=== PATIENT | female | born 1970 | race Caucasian/White ===

== ENCOUNTER 2017-04-12 17:00 | Emergency (ER) | payer BC ==
[~2017-04-12] VITALS: Ht 162.6 cm; Wt 89.8 kg
[2017-04-12 17:25] LABS: BASO % 1 % (0-3); EOS % 3 % (0-3); HEMATOCRIT 38.6 % (36.0-47.0); HEMOGLOBIN 12.8 g/dL (12.0-15.5); LYMPH # 1.4 x10^3/uL (1.0-4.8); LYMPH % 34 % (24-48); MEAN CORPUSCULAR HEMOGLOBIN 29 pg (25-35); MEAN CORPUSCULAR HGB CONC 33 g/dL (31-37); MEAN CORPUSCULAR VOLUME 87 fL (79-100); MONO % 10 % (0-9); NEUT % 52 % (31-73); PLATELET COUNT 244 x10^3/uL (140-400); RED BLOOD COUNT 4.42 x10^6/uL (3.50-5.40); RED CELL DISTRIBUTION WIDTH 13.5 % (11.5-14.5); WHITE BLOOD COUNT 4.2 x10^3/uL (4.0-11.0)
[2017-04-12] MEDS ORDERED: ASPIRIN 325 MG TABLET PO ONE (17:30)
[2017-04-12 17:38] LABS: CALCIUM 9.4 mg/dL (8.5-10.1); CREATININE 0.8 mg/dL (0.6-1.0); GFR 77.2; POTASSIUM 3.9 mmol/L (3.5-5.1)
--- NOTE | 2017-04-12 17:38 | EKG ---
[facility] [address] [place] [address] Test Date: 2017-04-12 Test Time: 17:09:45 Pat Name: ALCON SORIA Department: Room: Gender: F [employer] Supervisor: : 1970 Requested By: JULISSA GUDINO Order Number: [id number] Reading MD: Gwendolyn Grayson Measurements Intervals [place] Rate: 72 P: 41 NC: 140 QRS: 49 QRSD: 84 T: 27 QT: 390 QTc: 429 Interpretive Statements SINUS RHYTHM NORMAL EKG Electronically Signed On 04-14-2017 14:11:11 CDT by Gwendolyn Grayson
[2017-04-12 17:42] LABS: ALBUMIN 4.3 g/dL (3.4-5.0); ALBUMIN/GLOBULIN RATIO 1.4 (1.0-1.7); TOTAL BILIRUBIN 0.4 mg/dL (0.2-1.0); TOTAL PROTEIN 7.4 g/dL (6.4-8.2)
[2017-04-12 18:10] VITALS: BP 106/56
--- NOTE | 2017-04-12 18:10 | PHYS DOC ---
Past Medical History Past Medical History: Hypothyroid Past Surgical History: Alcohol Use: Occasionally Drug Use: None Adult General Chief Complaint Chief Complaint: CHEST PAIN HPI HPI Patient is a 47 year old female who presents with chest pain. The patient reports about 2 hours prior to arrival she had onset of generalized chest pressure which was nonradiating. Reports associated shortness of breath, denies nausea/diaphoresis. She denies fevers/chills, cough, lower extremity pain/swelling. Denies previous history of similar symptoms. Pain essentially resolved at time of my evaluation. She reports history of hypothyroidism, otherwise denies past medical history. Nonsmoker. Denies use of street drugs. Denies use of exogenous estrogen, recent surgery or travel. Denies family history of CAD. Review of Systems Review of Systems Constitutional: Denies fever or chills Eyes: Denies change in visual acuity HENT: Denies nasal congestion or sore throat Respiratory: Denies cough, reports shortness of breath Cardiovascular: Reports chest pain, denies edema GI: Denies abdominal pain, nausea, vomiting, bloody stools or diarrhea Musculoskeletal: Denies back pain or joint pain Integument: Denies rash or skin lesions Neurologic: Denies headache, focal weakness or sensory changes Current Medications Current Medications Current Medications Medications (Trade) Dose Ordered Sig/Tomasa Start Time Stop Time Status Last Admin Dose Admin Aspirin (Chris Aspirin) 325 mg 1X ONCE 04/12/17 17:30 04/12/17 17:31 DC 04/12/17 17:35 325 MG Allergies Allergies Allergies Coded Allergies Type Severity Reaction Last Updated Verified Penicillins Allergy Intermediate 04/12/17 Yes Physical Exam Physical Exam Constitutional: Obese, no acute distress, non-toxic appearance. HENT: Normocephalic, atraumatic, bilateral external ears normal, oropharynx moist, nose normal. Eyes: conjunctiva normal, no discharge. Neck: supple, no stridor. Cardiovascular: RRR, no murmurs, no edema. Lungs & Thorax: LCTAB, no wheezing, no respiratory distress. reproducible tenderness with palpation over the sternum. Abdomen: soft, nontender, nondistended. Skin: Warm, dry, no erythema, no rash. Back: No tenderness. Extremities: No tenderness, no edema. no calf tenderness or swelling. Neurologic: Alert and oriented X 3, no focal deficits noted. Psychologic: Affect normal, judgement normal, mood normal. Current Patient Data Vital Signs Vital Signs Date Time Temp Pulse Resp B/P (MAP) Pulse Ox O2 Delivery O2 Flow Rate FiO2 04/12/17 17:40 65 143/75 (97) Room Air 04/12/17 17:08 97.9 20 98 97.9 Lab Values Laboratory Tests Test 04/12/17 16:50 04/12/17 17:10 POC Urine HCG, Qualitative Hcg negative (Negative) White Blood Count 4.2 x10^3/uL (4.0-11.0) Red Blood Count 4.42 x10^6/uL (3.50-5.40) Hemoglobin 12.8 g/dL (12.0-15.5) Hematocrit 38.6 % (36.0-47.0) Mean Corpuscular Volume 87 fL (79-100) Mean Corpuscular Hemoglobin 29 pg (25-35) Mean Corpuscular Hemoglobin Concent 33 g/dL (31-37) Red Cell Distribution Width 13.5 % (11.5-14.5) Platelet Count 244 x10^3/uL (140-400) Neutrophils (%) (Auto) 52 % (31-73) Lymphocytes (%) (Auto) 34 % (24-48) Monocytes (%) (Auto) 10 % (0-9) H Eosinophils (%) (Auto) 3 % (0-3) Basophils (%) (Auto) 1 % (0-3) Neutrophils # (Auto) 2.1 x10^3uL (1.8-7.7) Lymphocytes # (Auto) 1.4 x10^3/uL (1.0-4.8) Monocytes # (Auto) 0.4 x10^3/uL (0.0-1.1) Eosinophils # (Auto) 0.1 x10^3/uL (0.0-0.7) Basophils # (Auto) 0.0 x10^3/uL (0.0-0.2) Sodium Level 141 mmol/L (136-145) Potassium Level 3.9 mmol/L (3.5-5.1) Chloride Level 104 mmol/L (98-107) Carbon Dioxide Level 29 mmol/L (21-32) Anion Gap 8 (6-14) Blood Urea Nitrogen 13 mg/dL (7-20) Creatinine 0.8 mg/dL (0.6-1.0) Estimated GFR (Cockcroft-Gault) 77.2 BUN/Creatinine Ratio 16 (6-20) Glucose Level 107 mg/dL (70-99) H Calcium Level 9.4 mg/dL (8.5-10.1) Total Bilirubin 0.4 mg/dL (0.2-1.0) Aspartate Amino Transferase (AST) 29 U/L (15-37) Alanine Aminotransferase (ALT) 41 U/L (14-59) Alkaline Phosphatase 71 U/L (46-116) Troponin I Quantitative < 0.017 ng/mL (0.000-0.055) KW-Nra-O-Type Natriuretic Peptide 56 pg/mL (0-124) Total Protein 7.4 g/dL (6.4-8.2) Albumin 4.3 g/dL (3.4-5.0) Albumin/Globulin Ratio 1.4 (1.0-1.7) Lipase 129 U/L (73-393) Laboratory Tests 04/12/17 17:10 Laboratory Tests 04/12/17 17:10 EKG EKG Interpreted by me: Normal sinus rhythm rate 72, no acute ST or T wave changes, normal intervals, no ectopy. [] Radiology/Procedures Radiology/Procedures CXR: interpreted by me: no cardiomegaly, no infiltrate, no pneumothorax.[] Course & Med Decision Making Course & Med Decision Making Pertinent Labs and Imaging studies reviewed. (See chart for details) The patient presents with atypical chest pain. Gave aspirin upon arrival. Obtained labs, EKG, CXR. No acute abnormality on workup here. HEART score is 0 , PERC is negative. Symptoms absent at time of arrival & throughout her stay here. Discussed results, recommend rest, tylenol/ibuprofen, suggest taking aspirin 81 mg daily until seen by physician. Follow up with PCP or with Dr. Morris in the cardiology clinic in 2-3 days. Come back for severe chest pain or shortness of breath, or any otherwise worsening condition. Discharged home in stable condition. [] Dragon Disclaimer Dragon Disclaimer This electronic medical record was generated, in whole or in part, using a voice recognition dictation system. Departure Departure Impression: Primary Impression: Chest pain Disposition: HOME, SELF-CARE Condition: STABLE Referrals: ALEN BERNAL (PCP) ABEBE MORRIS MD Patient Instructions: Chest Pain (Nonspecific), [id number] Additional Instructions: You were seen in the emergency department today for chest pain. Tests did not show a serious cause of symptoms. Please rest, take Tylenol or ibuprofen for pain. Follow-up with primary care physician or Dr. Morris in the cardiology clinic in 2-3 days. Return to the emergency department for severe chest pain or shortness of breath, any otherwise worsening condition. JULISSA GUDINO MD Apr 12, 2017 18:10
--- NOTE | 2017-04-13 08:05 | RAD ---
2 view CXR: Clinical indications: Chest pain and shortness of breath for 3 hours. Comparison: None available. Findings: No acute lung infiltrate or pleural effusion or pulmonary edema or lung mass or pneumothorax is seen. The heart size, pulmonary vasculature, mediastinum and both kellie are unremarkable. The osseous structures appear intact. Impression: No acute radiographic abnormality is seen.
== END 2017-04-12 18:37 | disposition home or self-care (01) ==
LOC: ER 17:00
DX: R07.89 Other chest pain (principal); R06.02 Shortness of breath; E03.9 Hypothyroidism, unspecified; Z88.0 Allergy status to penicillin
CPT/HCPCS: 36415; 71020; 80053; 81025; 83690; 83880; 84484; 85027; 93005; 99285-25

== ENCOUNTER → 2018-07-08 | Outpatient (CLI) | payer BC ==
--- NOTE | 2018-07-08 17:58 | KCIC ---
Pelvic ultrasound to include transabdominal and transvaginal imaging 07/08/2018 CLINICAL HISTORY: Pelvic pain with spotting for 3 weeks. TECHNIQUE: Using the distended urinary bladder as a sonographic window, a real-time ultrasound examination of pelvis was performed. Additionally in an attempt to better evaluate the uterus and adnexa, a transvaginal ultrasound study was performed. Multiple images were obtained. FINDINGS: The uterus is within normal limits in size. It measures 5.6 x 4.4 x 3.4 cm in longitudinal, transverse, and AP dimensions. A 1.6 cm hypoechoic mass is seen involving the fundus of the uterus. This is consistent with a fibroid. No additional abnormality of the uterus is seen. The endometrial echo complex measures 4 mm in thickness which is within normal limits. Both ovaries are within normal limits in size and echogenicity. The right ovary measures 1.4 x 1.7 x 1.1 cm in size. Left ovary measures 1.7 x 1.3 x 2.0 cm in size. No adnexal mass is seen. No free fluid is noted. IMPRESSION: 1. 1.6 cm uterine fibroid. 2. Otherwise negative study. Electronically signed by: Tacos Lindsay MD (07/08/2018 5:54 PM) [facility]
== END | disposition home or self-care (01) ==
LOC: KCIC US 15:17
PROVIDERS: ATTEND Family Medicine
DX: D25.9 Leiomyoma of uterus, unspecified (principal); E03.9 Hypothyroidism, unspecified; Z88.0 Allergy status to penicillin
CPT/HCPCS: 76830; 76856

== ENCOUNTER 2018-10-17 06:08 | Observation (INO) | payer BC ==
[~2018-10-17] VITALS: Ht 162.6 cm; Wt 79.4 kg
[2018-10-17] VITALS (8 sets, daily range): BP systolic 102–139; BP diastolic 62–79
[~2018-10-17 06:08] MED LIST: CLINDAMYCIN 900MG PREMIX 50 ML IV ONE; IBUP200T44 PO; LEVO100T5 PO; NAPR220C4 PO
[2018-10-17 06:56] LABS: U PREG PATIENT NEGATIVE (NEG)
[2018-10-17] MEDS: IV RINGERS,LACTATED 1000ML 1,000 ML IV SCH ×2 (06:56→10:19)
[2018-10-17 06:57] LABS: BASO % 1 % (0-3); EOS # 0.1 x10^3/uL (0.0-0.7); EOS % 3 % (0-3); HEMATOCRIT 38.6 % (36.0-47.0); HEMOGLOBIN 12.8 g/dL (12.0-15.5); LYMPH % 29 % (24-48); MEAN CORPUSCULAR HEMOGLOBIN 29 pg (25-35); MEAN CORPUSCULAR HGB CONC 33 g/dL (31-37); MEAN CORPUSCULAR VOLUME 87 fL (79-100); MONO # 0.4 x10^3/uL (0.0-1.1); MONO % 10 % (0-9); NEUT % 57 % (31-73); PLATELET COUNT 250 x10^3/uL (140-400); RED BLOOD COUNT 4.44 x10^6/uL (3.50-5.40); RED CELL DISTRIBUTION WIDTH 13.7 % (11.5-14.5); WHITE BLOOD COUNT 3.6 x10^3/uL (4.0-11.0)
[2018-10-17] MEDS ORDERED: LIDOCAINE 1% PF 2 ML VIAL. ID PRN (07:00)
[2018-10-17] MEDS ORDERED: ONDANSETRON PF 4 MG/2 ML VIAL. IV PRN ×2 (07:00→10:00)
[2018-10-17] MEDS ORDERED: MORPHINE SULFATE 2 MG/ML VIAL. IV PRN (07:00)
[2018-10-17] MEDS ORDERED: fentaNYL PF VIAL 100 MCG/2 ML VIAL IV PRN ×2 (07:00)
[2018-10-17] MEDS ORDERED: SCOPOLAMINE 1.5MG PATCH. TD ONE ×2 (07:00→09:00)
[2018-10-17] MEDS ORDERED: PROCHLORPERAZINE 10 MG/2 ML VIAL. IV PRN ×2 (07:00→10:00)
[2018-10-17] MEDS ORDERED: HYDROmorphone 2 MG/ML VIAL IV PRN (07:00)
[2018-10-17] MEDS ORDERED: BUPIVAC MPF-EPI 0.5%-1:200000 30 ML VIAL. ONE (07:08)
[2018-10-17] MEDS ORDERED: LIDOCAINE 1%/EPI 1:100,000 20 ML VIAL. ONE (07:08)
[2018-10-17] MEDS ORDERED: METHYLENE BLUE 1% 10 ML VIAL. ONE (07:08)
[2018-10-17] MEDS ORDERED: DEXAMETHASONE SOD PHOS 20 MG/5 ML VIAL. ONE (07:22)
[2018-10-17] MEDS ORDERED: MIDAZOLAM HCL/PF 2 MG/2 ML VIAL. ONE (07:22)
[2018-10-17] MEDS ORDERED: ONDANSETRON PF 4 MG/2 ML VIAL. ONE (07:22)
[2018-10-17] MEDS ORDERED: LIDOCAINE 2% PF Vial for OR 5 ML VIAL. ONE (07:22)
[2018-10-17] MEDS ORDERED: PROPOFOL 20 ML IV ONE (07:22)
[2018-10-17] MEDS ORDERED: ROCURONIUM 50 MG/5 ML VIAL. ONE (07:23)
[2018-10-17] MEDS ORDERED: fentaNYL PF VIAL 100 MCG/2 ML VIAL ONE ×2 (07:23→09:13)
[2018-10-17] MEDS ORDERED: ESTROGENS, CONJ VAGINAL CREAM 30GM TUBE. ONE (07:34)
[2018-10-17] MEDS ORDERED: SURGICEL HEMOSTAT 4X8 EACH. TP ONE (07:45)
[2018-10-17] MEDS ORDERED: KETOROLAC 30 MG/ML INJ FOR OR. INJ ONE (08:25)
[2018-10-17] MEDS ORDERED: FAMOTIDINE 20 MG/2 ML VIAL ONE (08:39)
[2018-10-17] MEDS ORDERED: GLYCOPYRROLATE 1 MG/5 ML VIAL. ONE (09:27)
[2018-10-17] MEDS ORDERED: NEOSTIGMINE METHYLSULFATE 5 MG/5 ML SYRINGE. ONE (09:28)
[2018-10-17] MEDS ORDERED: SEVOFLURANE 61 TO 120 MINUTES. IH ONE (09:30)
[2018-10-17] MEDS ORDERED: CALCIUM CARBONATE 500 MG TAB.CHEW PO PRN (10:00)
[2018-10-17] MEDS ORDERED: 0.9 % SODIUM CHLORIDE 10 ML DISP.SYRIN. IV PRN (10:00)
[2018-10-17] MEDS ORDERED: DEXTROSE 50% 25 GM / 50ML DISP.SYRIN. IV PRN (10:00)
[2018-10-17] MEDS ORDERED: ZOLPIDEM 5 MG TABLET. PO PRN (10:00)
[2018-10-17] MEDS ORDERED: oxyCODONE/APAP 5/325 1 TAB TABLET PO PRN (10:00)
[2018-10-17] MEDS ORDERED: SIMETHICONE 80 MG TAB.CHEW PO PRN (10:00)
[2018-10-17] MEDS ORDERED: diphenhydrAMINE HCL 25 MG CAPSULE PO PRN (10:00)
--- NOTE | 2018-10-17 10:00 | PDOC ---
BRIEF OPERATIVE NOTE Date: Oct 17, 2018 Pre-Op Diagnosis 1. Fibroids 2. PMB 3. Cystocele Post-Op Diagnosis Same Procedure Performed TVH & RSO Anterior Colporrhaphy Surgeon Dr. Garza Anesthesia Type: General Blood Loss 200 ml Specimens Obtained uterus, cervix, Right fallopian tube and ovary Findings Fibroid uterus, cystocele Complications none Operative Note see operative note ABEBE GARZA Jr, MD Oct 17, 2018 10:00
--- NOTE | 2018-10-17 10:44 | OP ---
DATE OF SURGERY: PREOPERATIVE DIAGNOSES: 1. Fibroids. 2. Postmenopausal bleeding. 3. Cystocele. POSTOPERATIVE DIAGNOSES: 1. Fibroids. 2. Postmenopausal bleeding. 3. Cystocele. PROCEDURES: 1. TVH and RSO. 2. Anterior colporrhaphy. SURGEON: Abebe Garza MD ANESTHESIA: GETA. ESTIMATED BLOOD LOSS: 200 mL. COMPLICATIONS: None. FINDINGS: Fibroid uterus, cystocele. SUMMARY: A 48-year-old female who continued to have postmenopausal bleeding. Endometrial biopsy was negative. The patient was counseled on risks, benefits and expectations of TVH-BSO, anterior repair and sacrospinous ligament fixation risks, benefits and expectations and voiced clear understanding to proceed. DESCRIPTION OF PROCEDURE: The patient was taken to the Surgery Suite and placed in dorsal lithotomy position. She was prepped with Betadine solution for vaginal prep and draped in sterile fashion. After adequate anesthesia, a weighted speculum and curved Sophia was placed vaginally. Rock clamp was placed on the cervix. With evaluation under anesthesia, the patient did not have much uterine dehiscence, therefore would not do the sacrospinous ligament fixation. 1% lidocaine with epinephrine was injected in a circumferential manner. Bovie cautery was utilized to circumscribe the cervix. The vaginal mucosa was dissected away from the lower uterine segment using a moist Ray-Ranjit. Parametrial tissue was clamped bilaterally with curved Enmanuel clamps, cut and suture ligated with 2-0 Vicryl suture. The posterior cul-de-sac was entered sharply with curved Espitia scissors. The uterosacral ligaments and cardinal ligaments were clamped bilaterally, cut and suture ligated. The utero-ovarian pedicle was clamped bilaterally, cut, and suture ligated. Uterus was then retroverted. The round ligament was then clamped, cut and suture ligated. The uterus, cervix and fibroids were removed. The right fallopian tube and ovary was then identified, grasped with Babcocks. Curved Enmanuel clamp was placed over the right infundibulopelvic ligament, the right fallopian tube and ovary were then excised. The pedicle was suture tied with 2-0 Vicryl suture. The left fallopian tube and ovary we were unable to identify after searching, the patient is postmenopausal and may have atrophied. At this point, a modified Walsh's culdoplasty was performed incorporating the uterosacral ligaments bilaterally. The remainder of the vaginal cuff was reapproximated using 2-0 Vicryl suture in a [id number] manner. An Allis clamp was placed 2 cm below the urethral orifice on the anterior vaginal mucosa. A second Allis clamp was placed 2 cm below the first Allis clamp. 1% lidocaine with epinephrine was injected between 2 Allis clamps. Scalpel was utilized to make a vertical incision between the 2 Allis clamps. The vaginal mucosa was then dissected away from the pubovesical fascia using sharp dissection with Metzenbaum scissors along with a moist Ray-Ranjit. The pubovesical fascia was then reapproximated using 2-0 Vicryl suture in an interrupted manner. The excess anterior vaginal mucosa was excised using the Metzenbaum scissors. The remaining anterior vaginal wall mucosa was reapproximated using 2-0 Vicryl suture in a [id number] manner. Premarin soaked vaginal packing was then placed. The patient tolerated the procedure well and was taken to Recovery Room in stable condition. Sponge and needle count correct x 3. ABEBE GARZA MD DR: EVER/raj JOB#: [id number] / [id number]
--- NOTE | 2018-10-17 11:10 | NUR ---
Received in room 339 from PACU. A+O x3. Pale pink with brisk capillary refill. States she is comfortable at present but is experiencing mild nausea. Scopalomine patch in place behind left ear. Vaginal packing in place, V-pad dry. SCDs on and active. IV infusing via left hand D5LR at 125/hr. Escobar in place draining cloudy yellow urine. Daughter at bedside.
--- NOTE | 2018-10-17 13:10 | NUR ---
Taking ice chips sparingly. CO nausea. Rates abd pain at 8. Dr. Garza called for orders for pain control.
[2018-10-17] MEDS ORDERED: OPIUM/BELLADONNA 30/16.2MG SUPP.RECT. PR ONE (13:15)
[2018-10-17] MEDS ORDERED: fentaNYL PF VIAL 100 MCG/2 ML VIAL IV ONE (13:15)
--- NOTE | 2018-10-17 13:55 | NUR ---
Sleeping past Fentanyl dose.
[2018-10-17] MEDS ORDERED: GABAPENTIN 300 MG CAPSULE. PO SCH (14:00)
[2018-10-17] MEDS: KETOROLAC 30 MG/ML VIAL. IV PRN ×2 (14:44→21:27)
--- NOTE | 2018-10-17 14:50 | NUR ---
States pain has returned, rates at 8. States it feels as if she has to urinate, sanchez draining well. B+O Supp given.Nausea continues. Toradol and Zofran given.
--- NOTE | 2018-10-17 16:20 | NUR ---
Feeling better except for 1 spot in RLQ. Dangled at side of bed with some relief. Warm pack applied to abdomen. Nausea a little better, taking sips of pop, cracker and jello.
--- NOTE | 2018-10-17 17:40 | NUR ---
States nausea is a little better. C/O pain and full feeling in vaginal area. Request nurse to call Dr. Garza to see if packing can be removed. Feels this will relieve her discomfort.
--- NOTE | 2018-10-17 18:00 | NUR ---
Vaginal packing removed per Dr. bhakta. Pt feels some relief, would like to rest a while. Room lights dimmed. Call light at hand. Addendum: 10/17/18 at 1824 by YANDEL WARD RN Minimal drainage on vag packing, pericare given. Abdomen soft, bowel sounds X 4 quadrants.+
[2018-10-18 03:40] VITALS: BP 113/68
[2018-10-18 03:49] LABS: BASO % 0 % (0-3); EOS % 0 % (0-3); HEMATOCRIT 34.3 % (36.0-47.0); HEMOGLOBIN 11.8 g/dL (12.0-15.5); LYMPH # 0.9 x10^3/uL (1.0-4.8); LYMPH % 10 % (24-48); MEAN CORPUSCULAR HEMOGLOBIN 30 pg (25-35); MEAN CORPUSCULAR HGB CONC 34 g/dL (31-37); MEAN CORPUSCULAR VOLUME 86 fL (79-100); MONO # 0.7 x10^3/uL (0.0-1.1); MONO % 8 % (0-9); NEUT % 82 % (31-73); PLATELET COUNT 234 x10^3/uL (140-400); RED BLOOD COUNT 3.97 x10^6/uL (3.50-5.40); RED CELL DISTRIBUTION WIDTH 13.3 % (11.5-14.5); WHITE BLOOD COUNT 8.5 x10^3/uL (4.0-11.0)
[2018-10-18 09:00] VITALS: BP 113/67
--- NOTE | 2018-10-18 12:20 | PDOC ---
SURGICAL PROGRESS NOTE Subjective Pt. feeling well. No complaints. Vital Signs Vital Signs Date Time Temp Pulse Resp B/P (MAP) Pulse Ox O2 Delivery O2 Flow Rate FiO2 10/18/18 11:40 16 Room Air 10/18/18 03:40 98.0 71 113/68 (83) 95 98.0 10/17/18 10:21 10 I&O Intake and Output 10/18/18 07:01 Intake Total 2645 ml Output Total 2325 ml Balance 320 ml Intake Oral 670 ml IV Total 1975 ml Output Urine Total 2125 ml Estimated Blood Loss 200 ml PATIENT HAS A TRINIDAD: No General: Alert, Oriented X3, Cooperative HEENT: Atraumatic Lungs: Clear to auscultation Heart: Regular rate Abdomen: Normal bowel sounds, Soft Psych/Mental Status: Mental status NL Labs Laboratory Tests Test 10/17/18 06:25 10/17/18 06:30 10/18/18 03:15 Urine Test Negative (NEG) White Blood Count 3.6 x10^3/uL (4.0-11.0) 8.5 x10^3/uL (4.0-11.0) Red Blood Count 4.44 x10^6/uL (3.50-5.40) 3.97 x10^6/uL (3.50-5.40) Hemoglobin 12.8 g/dL (12.0-15.5) 11.8 g/dL (12.0-15.5) Hematocrit 38.6 % (36.0-47.0) 34.3 % (36.0-47.0) Mean Corpuscular Volume 87 fL (79-100) 86 fL (79-100) Mean Corpuscular Hemoglobin 29 pg (25-35) 30 pg (25-35) Mean Corpuscular Hemoglobin Concent 33 g/dL (31-37) 34 g/dL (31-37) Red Cell Distribution Width 13.7 % (11.5-14.5) 13.3 % (11.5-14.5) Platelet Count 250 x10^3/uL (140-400) 234 x10^3/uL (140-400) Neutrophils (%) (Auto) 57 % (31-73) 82 % (31-73) Lymphocytes (%) (Auto) 29 % (24-48) 10 % (24-48) Monocytes (%) (Auto) 10 % (0-9) 8 % (0-9) Eosinophils (%) (Auto) 3 % (0-3) 0 % (0-3) Basophils (%) (Auto) 1 % (0-3) 0 % (0-3) Neutrophils # (Auto) 2.0 x10^3uL (1.8-7.7) 7.0 x10^3uL (1.8-7.7) Lymphocytes # (Auto) 1.0 x10^3/uL (1.0-4.8) 0.9 x10^3/uL (1.0-4.8) Monocytes # (Auto) 0.4 x10^3/uL (0.0-1.1) 0.7 x10^3/uL (0.0-1.1) Eosinophils # (Auto) 0.1 x10^3/uL (0.0-0.7) 0.0 x10^3/uL (0.0-0.7) Basophils # (Auto) 0.0 x10^3/uL (0.0-0.2) 0.0 x10^3/uL (0.0-0.2) Laboratory Tests Test 10/18/18 03:15 White Blood Count 8.5 x10^3/uL (4.0-11.0) Red Blood Count 3.97 x10^6/uL (3.50-5.40) Hemoglobin 11.8 g/dL (12.0-15.5) Hematocrit 34.3 % (36.0-47.0) Mean Corpuscular Volume 86 fL (79-100) Mean Corpuscular Hemoglobin 30 pg (25-35) Mean Corpuscular Hemoglobin Concent 34 g/dL (31-37) Red Cell Distribution Width 13.3 % (11.5-14.5) Platelet Count 234 x10^3/uL (140-400) Neutrophils (%) (Auto) 82 % (31-73) Lymphocytes (%) (Auto) 10 % (24-48) Monocytes (%) (Auto) 8 % (0-9) Eosinophils (%) (Auto) 0 % (0-3) Basophils (%) (Auto) 0 % (0-3) Neutrophils # (Auto) 7.0 x10^3uL (1.8-7.7) Lymphocytes # (Auto) 0.9 x10^3/uL (1.0-4.8) Monocytes # (Auto) 0.7 x10^3/uL (0.0-1.1) Eosinophils # (Auto) 0.0 x10^3/uL (0.0-0.7) Basophils # (Auto) 0.0 x10^3/uL (0.0-0.2) Assessment/Plan A: POD#1 s/p TVH, RSO and Anterior Colporrhaphy P: D/c [place] ABEBE CONROY Jr, MD Oct 18, 2018 12:20
--- NOTE | 2018-10-18 12:21 | DISCH ---
DISCHARGE INSTRUCTIONS Condition on Discharge Condition on Discharge: Stable Activity After Discharge Activity Instructions for Disc: Activity as tolerated Lifting Instructions after Dis: No heavy lifting Driving Instructions after Dis: No driving for 2 weeks Diet after Discharge Diet after Discharge: Regular Diet Texture: Regular Contacting the DRWally after DC Call your doctor for: Concerns you may have Follow-Up Follow up with: Dr. Garza in 2 weeks. ABEBE GARZA Jr, MD Oct 18, 2018 12:21
[2018-10-18] MEDS ORDERED: DOCU-109 PO (12:24)
[2018-10-18] MEDS ORDERED: GABA300C18 PO (12:24)
[2018-10-18] MEDS ORDERED: IBUP-1060 PO (12:24)
[2018-10-18 13:45] VITALS: BP 114/78
--- NOTE | 2018-10-21 15:09 | PATHOLOGY ---
[facility] Accession Number: [id number] . 01 Material submitted: . UTERUS,CERVIX, RIGHT FALLOPIAN TUBE AND OVARY . 01 Clinical history: . Uterine fibroids, postmenopausal bleeding, cystocele with uterine descensus . 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 - Chronic inflammation of exocervix. - Atrophic endometrium. - Involutional changes of ovary. [facility]/10/21/2018 . 02 Comment: There is no atypia or evidence of malignancy. No fallopian tube is identified. (JPM:[facility] 10/21/2018) . 02 Electronically signed: . Silviano Elmore MD, Pathologist NPI- [id number] . 01 Gross description: . The specimen is received in formalin, labeled "Izabela Hilliard, uterus, cervix, R fallopian tube, R ovary". Received is a 49 g, 7.0 x 4.1 x 3.1 cm uterus with attached cervix and detached ovary weighing 2 g. The uterine serosa is light see and smooth in appearance displaying a serosal nodule on the fundus measuring 2.6 x 2.3 x 2.2 cm. The 0.8 cm cervical os is surrounded by pale see to light brown, smooth ectocervical mucosa. The uterus is oriented using the peritoneal reflection and the anterior paracervical margin is inked black. The uterus is opened laterally to reveal a pale see endocervical canal measuring 2.5 cm in length. The endometrial cavity is linear and stenotic, measuring 3.0 cm in length by 0.2 cm in width. The endometrium is pale see, glistening to granular in appearance and measures less than 0.1 cm in thickness. Serial sectioning reveals a light see, trabeculated myometrium measuring up to 1.5 cm in thickness with no grossly distinct nodules or lesions. . The 2 g ovary measures 2.1 x 1.5 x 0.9 cm in greatest dimensions. Sectioning reveals pale see, normal ovarian stroma. The specimen container is filtered and no fallopian tube is grossly identified. The specimen is submitted representatively as follows: . A1 12:00 cervix A2 6:00 cervix A3 serosal nodule A4 anterior endomyometrium A5 posterior endomyometrium A6 agency service representative sections of ovary. ([facility]; 10/18/2018) QAC/QAC . 02 Pathologist provided ICD-10: D25.2, N72, N85.8 . 02 CPT . 702080 Specimen Comment: A courtesy copy of this report has been sent to Specimen Comment: [phone]. Specimen Comment: Report sent to Performed at: 01 [facility] [address], [place] [id number] MD Mele Peterson MD Phone: [phone] Performed at: [facility] [address] [place], [place] [id number] MD Silviano Elmore MD Phone: [phone]
== END 2018-10-18 14:05 | disposition home or self-care (01) ==
LOC: SURG 06:08 → 3 NORTH 10:47
PROVIDERS: ADMIT Obstetrics & Gynecology; ATTEND Obstetrics & Gynecology
DX: D25.9 Leiomyoma of uterus, unspecified (principal); N95.0 Postmenopausal bleeding; N81.10 Cystocele, unspecified
CPT/HCPCS: 36415; 58262; 81025; 85025; 86850; 86900; 86901; 88307; 96374; 96375; 96376; A7015; G0378; G0379; J1100; J1885; J2001; J2250; J2405; J2704; J2710; J3010; J3490; J7030; J7120; Q9968

== ENCOUNTER 2018-10-26 15:28 | Emergency (ER) | payer BC ==
[~2018-10-26] VITALS: Ht 162.6 cm; Wt 79.4 kg
[~2018-10-26 15:28] MED LIST changes: -CLINDAMYCIN 900MG PREMIX 50 ML IV ONE; +DOCU-109 PO; +GABA300C18 PO; +IBUP-1060 PO
--- NOTE | 2018-10-26 15:48 | PHYS DOC ---
Past Medical History Past Medical History: Hypothyroid Past Surgical History: Alcohol Use: Occasionally Drug Use: None Adult General Chief Complaint Chief Complaint: UPPER EXTREMITY PAIN HPI HPI Patient is a 48 year old female who presents with left shoulder and left lateral neck pain that occurred early this morning at 3 AM when she was sleeping. Patient states the pain only occurs when she turns her neck or moves her left shoulder septum positions. Patient denies any known injury. She states right now she does not have any pain. She states she had a hysterectomy on October 17, 2018. Patient states she is supposed to be on gabapentin and ibuprofen which she stopped taking. Patient denies any chest pain or shortness of breath. Review of Systems Review of Systems Constitutional: Denies fever or chills [] Eyes: Denies change in visual acuity, redness, or eye pain [] HENT: Denies nasal congestion or sore throat [] Respiratory: Denies cough or shortness of breath [] Cardiovascular: No additional information not addressed in HPI [] GI: Denies abdominal pain, nausea, vomiting, bloody stools or diarrhea [] : Denies dysuria or hematuria [] Musculoskeletal: Reports left shoulder pain, left lateral neck pain. Integument: Denies rash or skin lesions [] Neurologic: Denies headache, focal weakness or sensory changes [] All other systems were reviewed and found to be within normal limits, except as documented in this note. Current Medications Current Medications Current Medications Medications (Trade) Dose Ordered Sig/[facility] Start Time Stop Time Status Last Admin Dose Admin Aspirin (Chris Aspirin) 325 mg 1X ONCE 10/26/18 16:15 10/26/18 16:16 DC 10/26/18 15:55 325 MG Iohexol (Omnipaque 350 Mg/ml) 100 ml 1X ONCE 10/26/18 16:45 10/26/18 16:46 DC 10/26/18 16:45 100 ML Allergies Allergies Allergies Coded Allergies Type Severity Reaction Last Updated Verified Penicillins Allergy Intermediate UNKNOWN (CHILD) 10/14/18 Yes Physical Exam Physical Exam Constitutional: Well developed, well nourished, no acute distress, non-toxic appearance. [] HENT: Normocephalic, atraumatic, bilateral external ears normal, oropharynx moist, no oral exudates, nose normal. [] Eyes: PERRLA, EOMI, conjunctiva normal, no discharge. [] Neck: Normal range of motion, no tenderness, supple, no stridor. [] Cardiovascular:Heart rate regular rhythm, no murmur [] Lungs & Thorax: Bilateral breath sounds clear to auscultation [] Abdomen: Bowel sounds normal, soft, no tenderness, no masses, no pulsatile masses. [] Skin: Warm, dry, no erythema, no rash. [] Back: No tenderness, no CVA tenderness. [] Extremities: No tenderness, no cyanosis, no clubbing, ROM intact, no edema. [] Neurologic: Alert and oriented X 3, normal motor function, normal sensory function, no focal deficits noted. [] Psychologic: Affect normal, judgement normal, mood normal. [] Current Patient Data Vital Signs Vital Signs Date Time Temp Pulse Resp B/P (MAP) Pulse Ox O2 Delivery O2 Flow Rate FiO2 10/26/18 17:40 63 16 112/76 (88) 97 Room Air 10/26/18 15:38 98.2 98.2 Lab Values Laboratory Tests Test 10/26/18 15:47 10/26/18 15:59 Urine Collection Type Unknown Urine Color Yellow Urine Clarity Clear Urine pH 5.0 Urine Specific [place] 1.015 Urine Protein Negative mg/dL (NEG-TRACE) Urine Glucose (UA) Negative mg/dL (NEG) Urine Ketones (Stick) Negative mg/dL (NEG) Urine Blood Negative (NEG) Urine Nitrite Negative (NEG) Urine Bilirubin Negative (NEG) Urine Urobilinogen Dipstick 0.2 mg/dL (0.2 mg/dL) Urine Leukocyte Esterase Trace (NEG) Urine RBC Rare /HPF (0-2) Urine WBC 1-4 /HPF (0-4) Urine Squamous Epithelial Cells Few /LPF Urine Bacteria Few /HPF (0-FEW) Urine Opiates Screen Neg (NEG) Urine Methadone Screen Neg (NEG) Urine Barbiturates Neg (NEG) Urine Phencyclidine Screen Neg (NEG) Urine Amphetamine/Methamphetamine Neg (NEG) Urine Benzodiazepines Screen Neg (NEG) Urine Cocaine Screen Neg (NEG) Urine Cannabinoids Screen Neg (NEG) Urine Ethyl Alcohol Neg (NEG) White Blood Count 5.0 x10^3/uL (4.0-11.0) Red Blood Count 4.23 x10^6/uL (3.50-5.40) Hemoglobin 12.6 g/dL (12.0-15.5) Hematocrit 36.5 % (36.0-47.0) Mean Corpuscular Volume 86 fL (79-100) Mean Corpuscular Hemoglobin 30 pg (25-35) Mean Corpuscular Hemoglobin Concent 35 g/dL (31-37) Red Cell Distribution Width 13.5 % (11.5-14.5) Platelet Count 274 x10^3/uL (140-400) Neutrophils (%) (Auto) 74 % (31-73) H Lymphocytes (%) (Auto) 14 % (24-48) L Monocytes (%) (Auto) 10 % (0-9) H Eosinophils (%) (Auto) 2 % (0-3) Basophils (%) (Auto) 1 % (0-3) Neutrophils # (Auto) 3.7 x10^3uL (1.8-7.7) Lymphocytes # (Auto) 0.7 x10^3/uL (1.0-4.8) L Monocytes # (Auto) 0.5 x10^3/uL (0.0-1.1) Eosinophils # (Auto) 0.1 x10^3/uL (0.0-0.7) Basophils # (Auto) 0.0 x10^3/uL (0.0-0.2) PTT 28 SEC (24-38) D-Dimer (Paula) 0.93 ug/mlFEU (0.00-0.50) H Sodium Level 138 mmol/L (136-145) Potassium Level 3.8 mmol/L (3.5-5.1) Chloride Level 102 mmol/L (98-107) Carbon Dioxide Level 29 mmol/L (21-32) Anion Gap 7 (6-14) Blood Urea Nitrogen 20 mg/dL (7-20) Creatinine 0.8 mg/dL (0.6-1.0) Estimated GFR (Cockcroft-Gault) 76.9 BUN/Creatinine Ratio 25 (6-20) H Glucose Level 110 mg/dL (70-99) H Calcium Level 9.5 mg/dL (8.5-10.1) Magnesium Level 1.8 mg/dL (1.8-2.4) Total Bilirubin 0.4 mg/dL (0.2-1.0) Aspartate Amino Transferase (AST) 14 U/L (15-37) L Alanine Aminotransferase (ALT) 24 U/L (14-59) Alkaline Phosphatase 60 U/L (46-116) Troponin I Quantitative < 0.017 ng/mL (0.000-0.055) AG-Tqq-A-Type Natriuretic Peptide 112 pg/mL (0-124) Total Protein 7.8 g/dL (6.4-8.2) Albumin 3.5 g/dL (3.4-5.0) Albumin/Globulin Ratio 0.8 (1.0-1.7) L Lipase 151 U/L (73-393) Thyroid Stimulating Hormone (TSH) 0.132 uIU/mL (0.358-3.74) L Laboratory Tests 10/26/18 15:59 Laboratory Tests 10/26/18 15:59 EKG EKG 15:[address] Wang sinus rhythm Hr 58 no STEMI[] Radiology/Procedures Radiology/Procedures []PROCEDURE: PORTABLE CHEST 1V AP portable chest 10/26/2018. Reason for exam: Left arm, shoulder and neck pain. Comparison is made with a prior study of 04/12/2017. There is asymmetric density near the right lung apex. The lungs otherwise appear clear and no pleural fluid is seen. Heart size is normal. IMPRESSION: Asymmetric density near the right apex. This is of uncertain significance, given left-sided pain. A focal area of infiltrate could be present. Electronically signed by: Abebe Mendez Jr., MD (10/26/2018 4:01 PM) [facility] [place] DICTATED and SIGNED BY: ABEBE MENDEZ Jr, MD DATE: 10/26/18 1600 PROCEDURE: CT ANGIOGRAPHY CHEST PQRS Compliance statement: One or more of the following individualized dose reduction techniques were utilized for this examination: 1. Automated exposure control. 2. Adjustment of the mA and/or kV according to patient size. 3. Use of iterative reconstruction technique. Indication:elev D-dimer left side pain omni 350 100ml no prior TECHNIQUE: CT angiogram of the chest with IV contrast with multiplanar MIP reformats. COMPARISON:None FINDINGS: Diagnostic quality PE study. There are no central, segmental or subsegmental filling defects in the pulmonary arteries. Heart is normal in size. No pericardial or pleural effusion. No enlarged axillary, mediastinal or hilar adenopathy. Central airways are patent. Lungs are clear. Visualized sections through the liver, spleen, kidneys, pancreas, adrenals within normal limits. No suspicious bony lesion. IMPRESSION: 1. No PE. 2. No pneumonia or imaging evidence of pulmonary infarct. Electronically signed by: Gregory Ramos DO (10/26/2018 5:12 PM) [facility] DICTATED and SIGNED BY: GREGORY RAMOS DO DATE: 10/26/18 6787 Course & Med Decision Making Course & Med Decision Making Pertinent Labs and Imaging studies reviewed. (See chart for details) This is a 48-year-old female patient presenting to the ED today complaining of intermittent episodes of left shoulder and left lateral neck pain that occurred at 3 AM this morning. Patient has no pain right now. She had a hysterectomy on October 17, 2018. EKG is negative. Chest x-ray noted for right upper lobe pneumonia. CBC with normal WBC, CMP would not acute findings, troponin is normal. D-dimer 0.93, CTA chest was done which was negative for any acute findings. Vitals are stable. Patient's pain is likely musculoskeletal, she has no pain in the ED. She has gabapentin and ibuprofen. I requested her to take them as needed for pain. Follow-up with her own doctor next week. She is provided return precautions and discharged in stable condition. Staff Physician Addendum: I was working in the ER during the course of this patient's visit. I was available for consultation as needed, but I was not directly involved in the care of this patient. Dragon Disclaimer Dragon Disclaimer This electronic medical record was generated, in whole or in part, using a voice recognition dictation system. Departure Departure Impression: Primary Impression: Torticollis, acute Additional Impression: Left shoulder pain Disposition: HOME, SELF-CARE Condition: STABLE Referrals: ALEN BERNAL (PCP) follow up next week Patient Instructions: Shoulder Pain, Adoa-jb-Ucuf, Torticollis, Acute Additional Instructions: You were evaluated in the emergency room for pain. Your work up in the ER including labs and CT of the chest were negative for any acute findings. Please continue to take ibuprofen and gabapentin as needed for pain. You can apply ice to the affected areas. Follow-up with your doctor in the course of this week or next week. Problem Qualifiers Additional Impression: Left shoulder pain Chronicity: acute Qualified Codes: M25.512 - Pain in left shoulder MUTUNGA,GARRY KILN PULLER Oct 26, 2018 15:48 EZEKIEL WANG MD Oct 27, 2018 07:42
[2018-10-26 15:58] LABS: BILIRUBIN,URINE NEGATIVE (NEG); CLARITY,URINE CLEAR; COLOR,URINE YELLOW; NITRITE,URINE NEGATIVE (NEG); PROTEIN,URINE NEGATIVE (NEG-TRACE); UROBILINOGEN,URINE 0.2 mg/dL (0.2 mg/dL)
[2018-10-26 16:05] LABS: AMPHETAMINE/METHAMPHETAMINE NEG (NEG); BARBITURATES NEG (NEG); BENZODIAZEPINES NEG (NEG); CANNABINOIDS NEG (NEG); COCAINE NEG (NEG); METHADONE NEG (NEG); OPIATES NEG (NEG); PHENCYCLIDINE NEG (NEG)
--- NOTE | 2018-10-26 16:06 | RAD ---
AP portable chest 10/26/2018. Reason for exam: Left arm, shoulder and neck pain. Comparison is made with a prior study of 04/12/2017. There is asymmetric density near the right lung apex. The lungs otherwise appear clear and no pleural fluid is seen. Heart size is normal. IMPRESSION: Asymmetric density near the right apex. This is of uncertain significance, given left-sided pain. A focal area of infiltrate could be present. Electronically signed by: Mane Mendez Jr., MD (10/26/2018 4:01 PM) [facility] [place]
[2018-10-26 16:10] LABS: BASO % 1 % (0-3); EOS # 0.1 x10^3/uL (0.0-0.7); EOS % 2 % (0-3); HEMATOCRIT 36.5 % (36.0-47.0); HEMOGLOBIN 12.6 g/dL (12.0-15.5); LYMPH # 0.7 x10^3/uL (1.0-4.8); LYMPH % 14 % (24-48); MEAN CORPUSCULAR HEMOGLOBIN 30 pg (25-35); MEAN CORPUSCULAR HGB CONC 35 g/dL (31-37); MEAN CORPUSCULAR VOLUME 86 fL (79-100); MONO # 0.5 x10^3/uL (0.0-1.1); MONO % 10 % (0-9); NEUT # 3.7 x10^3uL (1.8-7.7); NEUT % 74 % (31-73); PLATELET COUNT 274 x10^3/uL (140-400); RED BLOOD COUNT 4.23 x10^6/uL (3.50-5.40); RED CELL DISTRIBUTION WIDTH 13.5 % (11.5-14.5)
[2018-10-26 16:13] LABS: BACTERIA,URINE FEW /HPF (0-FEW); RBC,URINE RARE /HPF (0-2); SQUAMOUS EPITHELIAL CELL,UR FEW /LPF
[2018-10-26] MEDS ORDERED: ASPIRIN 325 MG TABLET PO ONE (16:15)
[2018-10-26 16:19] LABS: CALCIUM 9.5 mg/dL (8.5-10.1); CREATININE 0.8 mg/dL (0.6-1.0); GFR 76.9; POTASSIUM 3.8 mmol/L (3.5-5.1)
[2018-10-26 16:26] LABS: ALBUMIN 3.5 g/dL (3.4-5.0); ALBUMIN/GLOBULIN RATIO 0.8 (1.0-1.7); MAGNESIUM 1.8 mg/dL (1.8-2.4); TOTAL BILIRUBIN 0.4 mg/dL (0.2-1.0); TOTAL PROTEIN 7.8 g/dL (6.4-8.2)
[2018-10-26] MEDS ORDERED: IOHEXOL 350 MG/ML 100 ML VIAL. IV ONE (16:45)
--- NOTE | 2018-10-26 17:16 | RAD ---
PQRS Compliance statement: One or more of the following individualized dose reduction techniques were utilized for this examination: 1. Automated exposure control. 2. Adjustment of the mA and/or kV according to patient size. 3. Use of iterative reconstruction technique. Indication:elev D-dimer left side pain omni 350 100ml no prior TECHNIQUE: CT angiogram of the chest with IV contrast with multiplanar MIP reformats. COMPARISON:None FINDINGS: Diagnostic quality PE study. There are no central, segmental or subsegmental filling defects in the pulmonary arteries. Heart is normal in size. No pericardial or pleural effusion. No enlarged axillary, mediastinal or hilar adenopathy. Central airways are patent. Lungs are clear. Visualized sections through the liver, spleen, kidneys, pancreas, adrenals within normal limits. No suspicious bony lesion. IMPRESSION: 1. No PE. 2. No pneumonia or imaging evidence of pulmonary infarct. Electronically signed by: Gregory Ramos DO (10/26/2018 5:12 PM) [facility]
[2018-10-26 17:40] VITALS: BP 112/76
--- NOTE | 2018-10-27 07:31 | EKG ---
[facility] [address] [place] [address] Test Date: 2018-10-26 Test Time: 15:39:48 Pat Name: ALCON SORIA Department: Room: Gender: F [employer]: : 1970 Requested By: GARRY SEXTON Order Number: [id number] Reading MD: Xu Ospina Measurements Intervals [place] Rate: 58 P: 36 DC: 142 QRS: 43 QRSD: 84 T: 10 QT: 414 QTc: 409 Interpretive Statements SINUS RHYTHM NON SPECIFIC T ABNORMALITY Electronically Signed On 10-29-2018 9:44:59 FEEDER/FOLDER by Xu Ospina
== END 2018-10-26 17:51 | disposition home or self-care (01) ==
LOC: ER 15:28
DX: M25.512 Pain in left shoulder (principal); M43.6 Torticollis; E03.9 Hypothyroidism, unspecified; Z88.0 Allergy status to penicillin
CPT/HCPCS: 36415; 71045; 71275; 80053; 80307; 81001; 83690; 83735; 83880; 84443; 84484; 85025; 85379; 85730; 87086; 93005; 99284; Q9967